=== PATIENT | male | born 1985 | race Caucasian/White ===

== ENCOUNTER 2016-08-14 10:57 | Emergency (ER) | payer SELFPAY ==
[2016-08-14] MEDS ORDERED: DIPH/PERTUSS(ACELL)/TETANUS VAC/PF 0.5 ML SYR (>=10YO) IM ONE (11:05)
--- NOTE | 2016-08-14 11:09 | ER Document Report ---
ED Medical Screen (RME) - General Chief Complaint: Laceration Stated Complaint: INJURY/HAND PAIN Notes: I briefly seen and evaluated this patient in my role as physician in triage. I have initiated orders based on this initial evaluation. Please see my colleague' s documentation for complete history, physical, management, diagnosis, and ultimate disposition. My brief evaluation: Patient states around 6 PM yesterday afternoon he was doing some piping work and he put his hand in and a razor thin piece of metal cut the top of his index finger of the left hand. Said that he bandaged it up and then when he got home he cleaned it with peroxide. He said he cleaned again with peroxide this morning. Last tetanus was about 8 years ago. On exam, patient has a laceration approximately 15 mm stellate overlying the distal MCP of the dorsum of the left index finger. Hemostatic. Medical decision making: Patient will get a tetanus update and late closure wound care. TRAVEL OUTSIDE OF THE [place] IN LAST 30 DAYS: No - Related Data Allergies/Adverse Reactions: No Known Allergies Allergy (Unverified 08/14/16 11:02) Past Medical History - Immunizations Immunizations up to date: Yes Hx Diphtheria, Pertussis, Tetanus Vaccination: Yes
[2016-08-14] MEDS ORDERED: LIDOCAINE 1% INJ-PF (10 MG/ML) 30 ML SDV INJ ONE (11:25)
--- NOTE | 2016-08-14 11:33 | ER Document Report ---
ED Wound - General Chief Complaint: Laceration Stated Complaint: INJURY/HAND PAIN Time seen by provider: 11:25 Mode of Arrival: Ambulatory Information source: Patient Notes: 31 yo male cut over the 2nd MCP joint right hand on metal last night, still bleeding this morning. Tetanus not current. TRAVEL OUTSIDE OF THE [place] IN LAST 30 DAYS: No - Related Data Allergies/Adverse Reactions: No Known Allergies Allergy (Unverified 08/14/16 11:02) Past Medical History - General Information source: Patient - Social History Smoking Status: Current Every Day Smoker Frequency of alcohol use: None Drug Abuse: None Lives with: Family Family History: DM, Hypertension, Malignancy Patient has suicidal ideation: No Patient has homicidal ideation: No - Medical History Medical History: Negative Renal/ Medical History: Denies: Hx Peritoneal Dialysis Surgical Hx: Negative - Immunizations Immunizations up to date: Yes Hx Diphtheria, Pertussis, Tetanus Vaccination: Yes Review of Systems - Review of Systems Constitutional: No symptoms reported EENT: No symptoms reported Cardiovascular: No symptoms reported Respiratory: No symptoms reported Gastrointestinal: No symptoms reported Genitourinary: No symptoms reported Male Genitourinary: No symptoms reported Musculoskeletal: No symptoms reported Skin: See HPI Hematologic/Lymphatic: No symptoms reported Neurological/Psychological: No symptoms reported Physical Exam - Vital signs Vitals: Temp Pulse Resp BP Pulse Ox 97.6 F 65 16 139/72 H 100 08/14/16 11:05 08/14/16 11:05 08/14/16 11:05 08/14/16 11:05 08/14/16 11:05 Interpretation: Normal - General General appearance: Appears well, Alert In distress: None - HEENT Head: Normocephalic, Atraumatic Eyes: Normal Pupils: PERRL Neck: Supple - Respiratory Respiratory status: No respiratory distress - Back Back: Normal, Nontender - Extremities General upper extremity: Normal inspection, Nontender, Normal color, Normal ROM , Normal temperature General lower extremity: Normal inspection, Nontender, Normal color, Normal ROM , Normal temperature, Normal weight bearing. No: Abdirahman's sign - Neurological Neuro grossly intact: Yes Cognition: Normal Orientation: AAOx4 Rosalinda Coma Scale Eye Opening: Spontaneous Rosalinda Coma Scale Verbal: Oriented Ada Coma Scale Motor: Obeys Commands Ada Coma Scale Total: 15 Speech: Normal Motor strength normal: LUE, RUE, LLE, RLE Sensory: Normal - Psychological Associated symptoms: Normal affect, Normal mood - Skin Skin Temperature: Warm Skin Moisture: Dry Skin Color: Normal Skin irregularity: Laceration - 1.5 cm over 2nd MCP right hand Location of irregularity: Other - see above Character of irregularity: Linear - vertical Irregularity with: Tenderness Course - Vital Signs Vital signs: Temp Pulse Resp BP Pulse Ox 97.6 F 65 16 139/72 H 100 08/14/16 11:05 08/14/16 11:05 08/14/16 11:05 08/14/16 11:05 08/14/16 11:05 Procedures - Laceration/Wound Repair Right Hand Time completed: 12:40 Wound length (cm): 2 Wound's Depth, Shape: Linear - vertical, Flap Laceration pre-procedure: Sterile drapes applied, Other - ultradex scrub Anesthetic type: 1% Lidocaine Volume Anesthetic (mLs): 5 Wound explored: Clean - at bloodless base, to tendon sheath, no tendon cut in full ectension and flexion of the joint Irrigated w/ Saline (mLs): 100 Wound Repaired With: Sutures Suture Size/Type: 4:0, Prolene Number of Sutures: 3 - 2 vertical mattress Layer Closure?: No Post-procedure NV exam normal: Yes Complications: No Discharge - Discharge Clinical Impression: right dorsal hand laceration repair Condition: Good Disposition: HOME, SELF-CARE Instructions: Laceration Care ([facility]), Prophylactic Antibiotic ([facility]), Tetanus Immunization Given ([facility]), Antibiotic Ointment Protection ([facility]), Cephalexin ([facility]) Additional Instructions: Wound check in 48 hours Keep the dressing on for 2 days, can then wash with soap and water, dry well, bacitracin Return to the emergency room sooner any concerns Please complete the patient satisfaction survey if you get one, and return it.. If you do not receive a survey, then you can go to the [facility] website, [email or web address] and place your comments about your very good care. Thank you very much. It was a pleasure being your medical provider today. Prescriptions: Cephalexin Monohydrate [Keflex 500 mg Capsule] 500 mg PO QID #20 capsule Referrals: AN JARAMILLO MD [Primary Care Provider] - Follow up as needed
[2016-08-14] MEDS ORDERED: CEPHALEXIN 500 MG CAPSULE PO ONE (12:38)
[2016-08-14 12:55] VITALS: BP 122/70
== END 2016-08-14 12:50 | disposition home or self-care (01) ==
LOC: ER 10:57
PROC: 0HQFXZZ Repair Right Hand Skin, External Approach (ICD-10-PCS; principal; 2016-08-14)
DX: S61.411A Laceration without foreign body of right hand, initial encounter (principal); W45.8XXA Other foreign body or object entering through skin, initial encounter; F17.200 Nicotine dependence, unspecified, uncomplicated; Z23 Encounter for immunization
CPT/HCPCS: 99282; 90471; 90715; 12001; J3490

== ENCOUNTER 2019-02-03 19:46 | Emergency (ER) | payer SELFPAY ==
[2019-02-03 20:07] VITALS: BP 132/100
== END 2019-02-03 19:56 | disposition left against medical advice (07) ==
LOC: ER 19:46
DX: Z53.21 Procedure and treatment not carried out due to patient leaving prior to being seen by health care provider (principal); V87.7XXA Person injured in collision between other specified motor vehicles (traffic), initial encounter